=== PATIENT | female | born 1965 | race Caucasian/White ===

== ENCOUNTER 2016-12-17 10:14 | Emergency (ER) | payer OTHER ==
[~2016-12-17] VITALS: Ht 157.5 cm; Wt 99.3 kg
[~2016-12-17 10:14] MED LIST: DULO60CA44 PO
[2016-12-17 10:18] VITALS: TEMP 36.9; Ht 157.5 cm; Wt 99.3 kg
[2016-12-17] MEDS ORDERED: CLR10 PO (10:34)
[2016-12-17] MEDS ORDERED: ACET-1256 PO (10:34)
[2016-12-17] MEDS ORDERED: PSEU60TA80 PO (10:34)
[2016-12-17] MEDS ORDERED: ALBUT/IPRATROP 3MG/0.5MG NEB 3 ML VIAL INH STA (10:40)
[2016-12-17 10:59] VITALS: O2SAT 95
[2016-12-17 11:01] VITALS: PULSE 109
--- NOTE | 2016-12-17 11:29 | DIAGNOSTIC IMAGING REPORT ---
CHEST 2 VIEWS ROUTINE CLINICAL HISTORY: cough, chest pain dyspnea COMPARISON STUDY: 09/20/2016 FINDINGS: Mild peribronchial prominence throughout the lower lung regions bilaterally. Upper lungs are considered clear. There are no consolidative infiltrates. Heart shows no evidence for enlargement. Diaphragms are smooth. IMPRESSION: Peribronchial prominence throughout both lung bases suggesting mild basilar bronchitis. Electronically signed by: Emiliano Gil M.D. 12/17/2016 11:27 AM Dictated Date/Time: 12/17/2016 11:27 AM
[2016-12-17 11:32] LABS: BASO % 0.2 %; BASO ABS # 0.02 K/uL (0-0.2); COMPLETE YES; EOS % 4.8 %; HEMATOCRIT 39.9 % (37-47); IG% 0.2 %; LYMPH % 11.7 %; LYMPH ABS # 1.14 K/uL (1.2-3.4); MEAN CELL VOLUME 87.1 fL (80-100); MEAN CORPUSCULAR HEMOGLOBIN 29.5 pg (25-34); MEAN CORPUSCULAR HGB CONC 33.8 g/dl (32-36); MEAN PLATELET VOLUME 10.5 fL (7.4-10.4); MONO % 9.1 %; PLATELET COUNT 275 K/uL (130-400); RED BLOOD COUNT 4.58 M/uL (4.2-5.4); WHITE BLOOD COUNT 9.74 K/uL (4.8-10.8)
[2016-12-17 11:51] LABS: ALT/SGPT 18 U/L (12-78); BLOOD UREA NITROGEN 6 mg/dl (7-18); BUN/CREATININE RATIO 7.5 (10-20); CALCIUM 8.9 mg/dl (8.5-10.1); CARBON DIOXIDE 23 mmol/L (21-32); CHLORIDE 106 mmol/L (98-107); CREATININE 0.79 mg/dl (0.60-1.20); GLUCOSE 90 mg/dl (70-99); POTASSIUM 3.8 mmol/L (3.5-5.1); SODIUM 138 mmol/L (136-145)
[2016-12-17 11:56] LABS: ALB/GLOB RATIO 0.9 (0.9-2); ALKALINE PHOSPHATASE 125 U/L (45-117); AST/SGOT 15 U/L (15-37)
[2016-12-17] MEDS ORDERED: AZITTAB PO (12:03)
[2016-12-17] MEDS ORDERED: METH4PAK PO (12:03)
--- NOTE | 2016-12-17 12:04 | EMERGENCY ROOM VISIT NOTE ---
History First contact with patient: 10:24 Chief Complaint: FLU LIKE SX Stated Complaint: COUGH, SORETHROAT, SORE RIBS History of Present Illness The patient is a 51 year old female who presents to the Emergency Room with complaints of flulike symptoms which began last night. The patient reports that she has had a cough, sore throat and pain in bilateral ribs. She states that she has had some shortness of breath with these fits of coughing. She does report that she has had a few episodes of diarrhea today. She has been taking Mucinex without relief. She denies nausea, vomiting, abdominal pain, chest pain, neck pain or headache. She denies any fevers/chills. She does report that her son-in-law has been ill with similar symptoms recently. She did not receive a flu vaccine this year. Review of Systems A complete 10-point Review of Systems was discussed with the patient, with pertinent positives and negatives listed in the History of Present Illness. All remaining Review of Systems questions can be considered negative unless otherwise specified. Past Medical/Surgical History Medical Problems: (1) Trigeminal neuralgia of right side of face Social History Smoking Status: Current Every Day Smoker Occupation Status: employed Current/Historical Medications Scheduled Acetaminophen (Tylenol), 1,000 MG PO Q6 Azithromycin (Zithromax Z-Dom), 0 PO UD Loratadine (Claritin), 10 MG PO DAILY Methylprednisolone (Medrol Dosepak), 0 PO DAILY Pseudoephedrine-Guaifenesin (Mucinex D), 1 TAB PO DIRECTED Allergies Coded Allergies: [place] (Verified Allergy, Unknown, hives, 12/17/16) Physical Exam Vital Signs Date Time Temp Pulse Resp B/P Pulse Ox O2 Delivery O2 Flow Rate FiO2 12/17/16 12:18 18 150/90 96 12/17/16 11:01 109 20 153/106 95 Room Air 12/17/16 10:59 95 Room Air 12/17/16 10:18 36.9 111 22 139/90 97 Room Air Physical Exam VITALS: Vitals are noted on the nurse's note and reviewed by myself. Vital signs stable. GENERAL: This is a 51-year-old female, in no acute distress, nondiaphoretic, well-developed well-nourished. SKIN: Capillary reflex less than 2 seconds. HEENT: Normocephalic. PERRLA. EOMI. Nares patent. Mucous membranes moist. Neck is supple without nuchal rigidity. HEART: Regular rate and rhythm without murmurs gallops or rubs. LUNGS: Clear to auscultation bilaterally with mild wheezes in bilateral lower lung melchor. No retractions or accessory muscle use. ABDOMEN: Positive bowel sounds x 4. Soft, nontender to palpation. NEURO: Patient was alert and oriented to person place and time. Medical Decision & Procedures Laboratory Results 12/17/16 11:05 Red Blood Count 4.58, Mean Corpuscular Volume 87.1, Mean Corpuscular Hemoglobin 29.5, Mean Corpuscular Hemoglobin Concent 33.8, Mean Platelet Volume 10.5, Neutrophils (%) (Auto) 74.0, Lymphocytes (%) (Auto) 11.7, Monocytes (%) (Auto) 9.1, Eosinophils (%) (Auto) 4.8, Basophils (%) (Auto) 0.2, Neutrophils # (Auto) 7.20, Lymphocytes # (Auto) 1.14, Monocytes # (Auto) 0.89, Eosinophils # (Auto) 0.47, Basophils # (Auto) 0.02 12/17/16 11:05 Test 12/17/16 11:00 12/17/16 11:05 Influenza Type A Antigen Neg for Influ A (NEG) Influenza Type B Antigen Neg for Influ B (NEG) White Blood Count 9.74 K/uL (4.8-10.8) Red Blood Count 4.58 M/uL (4.2-5.4) Hemoglobin 13.5 g/dL (12.0-16.0) Hematocrit 39.9 % (37-47) Mean Corpuscular Volume 87.1 fL (80-100) Mean Corpuscular Hemoglobin 29.5 pg (25-34) Mean Corpuscular Hemoglobin Concent 33.8 g/dl (32-36) Platelet Count 275 K/uL (130-400) Mean Platelet Volume 10.5 fL (7.4-10.4) Neutrophils (%) (Auto) 74.0 % Lymphocytes (%) (Auto) 11.7 % Monocytes (%) (Auto) 9.1 % Eosinophils (%) (Auto) 4.8 % Basophils (%) (Auto) 0.2 % Neutrophils # (Auto) 7.20 K/uL (1.4-6.5) Lymphocytes # (Auto) 1.14 K/uL (1.2-3.4) Monocytes # (Auto) 0.89 K/uL (0.11-0.59) Eosinophils # (Auto) 0.47 K/uL (0-0.5) Basophils # (Auto) 0.02 K/uL (0-0.2) RDW Standard Deviation 51.9 fL (36.4-46.3) RDW Coefficient of Variation 16.2 % (11.5-14.5) Immature Granulocyte % (Auto) 0.2 % Immature Granulocyte # (Auto) 0.02 K/uL (0.00-0.02) Anion Gap 9.0 mmol/L (3-11) Est Creatinine Clear Calc Drug Dose 93.9 ml/min Estimated GFR () 101.2 Estimated GFR (Non- 87.3 BUN/Creatinine Ratio 7.5 (10-20) Calcium Level 8.9 mg/dl (8.5-10.1) Total Bilirubin 0.2 mg/dl (0.2-1) Aspartate Amino Transf (AST/SGOT) 15 U/L (15-37) Alanine Aminotransferase (ALT/SGPT) 18 U/L (12-78) Alkaline Phosphatase 125 U/L (45-117) Troponin I < 0.015 ng/ml (0-0.045) Total Protein 7.7 gm/dl (6.4-8.2) Albumin 3.7 gm/dl (3.4-5.0) Globulin 4.0 gm/dl (2.5-4.0) Albumin/Globulin Ratio 0.9 (0.9-2) Medications Administered Medications (Trade) Dose Ordered Sig/Giovana Route Start Time Stop Time Status Last Admin Dose Admin Albuterol/ Ipratropium (Duoneb) 3 ml NOW STAT INH 12/17/16 10:40 12/17/16 10:41 DC 12/17/16 10:58 3 ML ECG Rate (beats per minute): 102 Rhythm: sinus tachycardia Findings: no acute ischemic change, no ectopy Medical Decision Differential diagnosis includes pneumonia, influenza, bronchitis, among others. The patient was evaluated as above. Labs were drawn and IV access was obtained. Imaging studies were performed and read by radiology as above. The patient was medicated with a DuoNeb treatment. The patient was reassessed multiple times during their stay in the emergency department and remained in stable condition. The patient is a 51-year-old female who presents today complaining of cough and flulike symptoms. Labs revealed no leukocytosis, anemia or concerning electrolyte abnormalities. Troponin was not elevated. EKG was unremarkable. Chest x-ray was performed and showed evidence of acute bronchitis. The patient' s oxygen saturations were within normal limits. She will be placed on Zithromax and a Medrol Dosepak. She was instructed to follow-up closely with her primary care provider for further evaluation or return here for worsening of her current condition. Based on the patient's presentation, lab results, and imaging studies, I feel the patient is stable for outpatient treatment. Discharge instructions were reviewed with the patient. The patient verbalized understanding of my assessment and treatment plan and was discharged home in good condition. Impression Primary Impression: Acute bronchitis Departure Information Dispostion Home / Self-Care Condition GOOD Prescriptions Azithromycin (ZITHROMAX Z-DOM) 250 Mg Tab 0 PO UD, #1 PKT 2 TABS DAY 1, THEN 1 TAB DAILY FOR 4 DAYS Prov: Tamie Clancy PA-C 12/17/16 Methylprednisolone (MEDROL DOSEPAK) 4 Mg Dom 0 PO DAILY, #1 PKT Prov: Tamie Clancy PA-C 12/17/16 Referrals No Doctor, Assigned (PCP) Patient Instructions My [facility] Additional Instructions You were prescribed Zithromax to be taken as prescribed. This is an antibiotic. All antibiotics have the potential to cause diarrhea. Stop this medication and contact a medical provider if you were to develop any significant adverse side effects including: wheezing, shortness of breath, passing out, vomiting, or a diffuse rash. Always take antibiotics as directed and COMPLETE the ENTIRE course regardless of the improvement of your symptoms. For pain control, you can use the following [id number] medicines (if >12 yo): - Regular strength (325mg/tab) Tylenol (acetaminophen) 2 tabs every 4-6 hours as needed. Do not exceed 12 tablets in a 24 hour period. Avoid taking more than 4 grams (4000 mg) of Tylenol per day. This includes any other sources of acetaminophen you may take on a regular basis. - Regular strength (200 mg/tab) Advil (ibuprofen) 1-2 tabs every 4-6 hours as needed. Do not exceed a dose of 3200 mg per day. You have been prescribed a Medrol Dosepak. This is a steroid which will help decrease your inflammation. Take the medicine as prescribed. Take the ENTIRE 6 day course of the steroids. Follow-up with your primary care provider within 48 hours for further evaluation. Return to the emergency room with worsening shortness of breath, worsening chest pain, high fevers or any other new/concerning symptoms. Problem Qualifiers Primary Impression: Acute bronchitis Bronchitis organism: unspecified organism Qualified Codes: J20.9 - Acute bronchitis, unspecified
[2016-12-17 12:18] VITALS: BP 150/90; O2SAT 96
== END 2016-12-17 12:18 | disposition home or self-care (01) ==
LOC: C.EDB 10:15 → C.EDC 12:18
DX: J20.9 Acute bronchitis, unspecified (principal); F17.200 Nicotine dependence, unspecified, uncomplicated